=== PATIENT | male | born 1940 | race Caucasian/White ===

== ENCOUNTER 2017-01-17 08:50 | Day surgery (SDC) | payer MEDICARE, OTHER ==
[2017-01-16 10:32] VITALS: BMI 25.4
[2017-01-17] VITALS (11 sets, daily range): BP systolic 122–145; BP diastolic 69–82; PULSE 66–72; RESP 12–16; Ht 167.6 cm; Wt 89.0 kg
[~2017-01-17] VITALS: Ht 167.6 cm; Wt 89.0 kg
[~2017-01-17 08:50] MED LIST: ATOR20TA17 PO; CHOL10009 PO; METO25TA7 PO; PARO20TA58 PO; PROPOFOL 200 MG INJ ONE
[2017-01-17] MEDS ORDERED: METO25TA4 PO (09:34)
[2017-01-17] MEDS ORDERED: MEMA28CA PO (09:34)
[2017-01-17] MEDS ORDERED: CYAN100018 PO (09:34)
[2017-01-17] MEDS ORDERED: ESCI20TA PO (09:34)
[2017-01-17] MEDS ORDERED: ATOR10TA65 PO (09:34)
[2017-01-17] MEDS ORDERED: ROCURONIUM 50 MG INJ ONE (11:17)
[2017-01-17] MEDS ORDERED: ETOMIDATE 20 MG INJ ONE (11:17)
[2017-01-17] MEDS ORDERED: LIDOCAINE 1% (MDV) 20 ML INJ ONE (11:18)
[2017-01-17] MEDS ORDERED: CIPROFLOXACIN 400MG/D5W 200 ML IVPB SCH (11:30)
[2017-01-17] MEDS ORDERED: EPHEDrine SULFATE 50 MG/5 ML SYG ONE (11:38)
[2017-01-17] MEDS ORDERED: PHENYLephrine (100 MCG/ML) 5ML SYG ONE (11:40)
[2017-01-17] MEDS ORDERED: DEXAMETHASONE 4 MG/ML 1 ML INJ ONE (11:46)
[2017-01-17] MEDS ORDERED: ONDANSETRON 4 MG INJ ONE (11:46)
[2017-01-17] MEDS ORDERED: FAMOTIDINE 20 MG INJ ONE (11:46)
[2017-01-17] MEDS ORDERED: ONDANSETRON 4 MG INJ IV PRN (13:30)
[2017-01-17] MEDS ORDERED: LABETALOL HCL 20MG INJ IV PRN (13:30)
[2017-01-17] MEDS ORDERED: HYDROmorphONE (0.2 MG/ML) 10ML SYG IV PRN ×2 (13:30)
[2017-01-17] MEDS ORDERED: MEPERIDINE 25 MG INJ IV PRN (13:30)
[2017-01-17] MEDS ORDERED: hydrALAzine 20 MG INJ IV PRN (13:30)
[2017-01-17] MEDS ORDERED: GLYCOPYRROLATE 0.4 MG INJ ONE (14:19)
[2017-01-17] MEDS ORDERED: NEOSTIGMINE 3 MG/3 ML SYRINGE ONE (14:19)
--- NOTE | 2017-01-17 14:24 | HPN ---
Date/Time of Note Date/Time of Note DATE: 01/17/17 TIME: 14:24 Interval H&P Admission Note Pt. seen H&P reviewed: No system changes POORNIMA SILVA MD Jan 17, 2017 14:24
--- NOTE | 2017-01-17 14:59 | RADRPT ---
PROCEDURE: X-ray fluoroscopy guidance CLINICAL INDICATION: Pain TECHNIQUE: Fluoroscopic guidance was utilized for cystoscopy, ureteral stent placement. COMPARISON: None available FINDINGS: Right ureteral stent is seen in place at the end of the procedure. 83.1 seconds of fluoroscopy time was utilized for the procedure. 31 images were obtained during the procedure in progress. IMPRESSION: 1. X-ray fluoroscopic guidance, as above. RPTAT: QQ .Asim Manrique MD, MD Date Time Electronically viewed and signed by .Asim Manrique MD, on 01/17/2017 14:59 .R/
--- NOTE | 2017-01-17 16:24 | OPR ---
DATE OF OPERATION: 01/17/2017 PREOPERATIVE DIAGNOSIS: The patient has kidney stones. He is status post extracorporeal shock wave lithotripsy and he has a JJ stent. POSTOPERATIVE DIAGNOSIS: The patient has kidney stones. He is status post extracorporeal shock wa ve lithotripsy and he has a JJ stent. PROCEDURE PERFORMED: Cystoscopy, right ureteroscopy, removal and basketing of multiple distal and m iddle ureteral stones and then right pyeloscopy, laser lithotripsy to the stones in the kidney and r emoval of the stone fragments from the kidney, and insertion of a new JJ stent 6-Citizen [place] x 26 cm long . SURGEON: Jerrod Good MD FINDINGS: The patient did have multiple stones in the distal and middle ureter that needed to be re moved before getting up to the kidney to treat the kidney stones. TECHNIQUE: The patient was brought to the operating room. The patient had general anesthesia. Anup eout was done. The patient was identified by his name, date, and the procedure and the side o f the procedure. The patient received 400 mg of Cipro IV at the start of the procedure. The patien t was then positioned in the lithotomy position. The genital area was prepped and draped in the usu al sterile manner. A #21 Citizen [place] cystoscope sheath was introduced under direct vision through the pe nile urethra all the way to the bladder. Once in the bladder, the distal end of the JJ stent was gr asped with a grasper and then under fluoroscopy, I pulled it out and one could see the proximal curl uncurling and coming out. The stent was removed and then I looked back into the bladder and sure e nough, the patient had multiple stone fragments at the ureterovesical junction and the distal ureter that were obstructing his ureter. I was able to pass a Glidewire up to the kidney, but could not a dvance anything else because the stone fragments were obstructing his ureter. Therefore, I had to d o rigid ureteroscopy and basket all the stone fragments out of the distal ureter also the middle ure ter and also a few stone fragments in the upper ureter. Once I basketed all these stone fragments, then I was able to pass on the Glidewire. I was able to pass the dual-lumen and then pass the Senso r wire up to the kidney. Once I had the Sensor wire and the Glidewire in the kidney, then I pulled out the ureteroscope and the Sensor wire was used as a safety wire. The Glidewire was used to advan ce on it an 11 x 13 mm diameter x 36 cm long access sheath. Once the access sheath was passed, then we advanced the digital flexible ureteroscope all the way up to the kidney and the stones in the ki dney were visualized and they were in the middle pole nolan. Then, I did use the holmium laser to b reak the stones into multiple smaller pieces and basketed them out. One piece that came down, it wa s too big, it got stuck in the ureter, so I had to dislodge it from the basket and then break it wit h the laser in the ureter as well. Once that was broken into smaller pieces, then the fragments wer e basketed and removed. Then we kept going back and forth to the nolan that had all the stone fragm ents and basketed them and we got all the stone fragments that are bigger than 1 mm. The others are smaller than 1 mm and like sand, could not basket these out and the patient should be able to pass them on his own. At the end of the procedure, the digital flexible ureteroscope was removed. The a ccess sheath was removed. Still have the Sensor wire which was the safety wire in place. Then I di d the cystoscopy and drained all the stone fragments that we previously basketed with the rigid uret eroscope and drop them into the bladder, so I drained all of these out. The bladder was clean from any stone fragment. Then, I repeated the cystoscopy. I reintroduced the cystoscope on the safety wire and on the safety wire, I advanced the 6-Citizen [place] x 26 cm long JJ stent, had its proximal end curling into the kidney a nd the distal end curling into the bladder. The distal end is attached to a string that was taped o n to the penis so to allow us a few days later to remove the stent without having to do a cystoscopy on the patient. The patient tolerated the procedure well and was sent to the recovery room in stab le and satisfactory condition. Dictated By: JERROD BACA/JEVON Conf#: [id number] DID#: [id number]
== END 2017-01-20 09:56 | disposition home or self-care (01) ==
LOC: SDS 08:50
PROVIDERS: ATTEND Urology
DX: N20.2 Calculus of kidney with calculus of ureter (principal); I10 Essential (primary) hypertension; F03.90 Unspecified dementia, unspecified severity, without behavioral disturbance, psychotic disturbance, mood disturbance, and anxiety; Z87.891 Personal history of nicotine dependence
CPT/HCPCS: 52356; 74430; 87086; 88300; C2617; J0744; J1100; J2370; J2405; J2710; J3010